=== PATIENT | female | born 1955 | race Caucasian/White ===

== ENCOUNTER 2017-02-03 21:39 | Observation (INO) | payer OTHER ==
[~2017-02-03] VITALS: Ht 170.2 cm; Wt 109.8 kg
[2017-02-03 22:41] LABS: BASO % 0.5 %; BASO ABS # 0.04 K/uL (0-0.2); COMPLETE YES; EOS % 2.1 %; HEMATOCRIT 47.9 % (37-47); IG% 0.1 %; LYMPH ABS # 3.01 K/uL (1.2-3.4); MEAN CELL VOLUME 88.7 fL (80-100); MEAN CORPUSCULAR HEMOGLOBIN 28.9 pg (25-34); MEAN CORPUSCULAR HGB CONC 32.6 g/dl (32-36); MEAN PLATELET VOLUME 10.1 fL (7.4-10.4); MONO % 7.2 %; NEUT % 50.1 %; PLATELET COUNT 240 K/uL (130-400); WHITE BLOOD COUNT 7.52 K/uL (4.8-10.8)
--- NOTE | 2017-02-03 22:43 | EMERGENCY ROOM VISIT NOTE ---
History Report prepared by Stephanie: Chikis Mcdnoough Under the Supervision of: Dr. Felipe Schmitt D.O. First contact with patient: 21:53 Chief Complaint: WEAKNESS Stated Complaint: SEEING THINGS, WEAK, VERY CONFUSED History of Present Illness The patient is a 61 year old female who presents to the Emergency Room with complaints of intermittent vision issues starting about a week ago. She states "things sometimes come toward me and move away from me." She has also been having a blurry vision, double vision, and loss of vision intermittently. As per family, the patient has been having some trouble with ambulation and has severe weakness. The patient reports that she has been dropping items. She currently reports improvement in her symptoms. She denies any pain. She denies chest pain, shortness of breath, or any other complaints. She denies any prior history of stroke. She has a history of heart palpitations and COPD. She does not wear oxygen at home. She did not have any recent changes in medications. She takes a baby aspirin daily but otherwise denies any other blood thinners. Source of History: patient, family Onset: about a week ago Position: eye (bilateral) Symptom Intensity: No pain Quality: other (vision issues) Timing: intermittent Associated Symptoms: No SOB, No chest pain Review of Systems See HPI for pertinent positives and negatives. A total of ten systems were reviewed and were otherwise negative. Past Medical & Surgical Medical Problems: (1) COPD (chronic obstructive pulmonary disease) (2) Heart palpitations (3) TIA (transient ischemic attack) Family History Patient reports no known family medical history. Social History Smoking Status: Never Smoker Marital Status: Occupation Status: unemployed Current/Historical Medications Scheduled Aspirin (Aspirin Ec), 81 MG PO DAILY Clonidine Hcl (Catapres), 0.2 MG PO HS Fluticasone Furoate-Vilanterol (Breo Ellipta), 1 PUFFS INH DAILY Fluticasone Propionate (Nasal) (Flonase Allergy Relief), 2 SPRAYS BRANDON DAILY Furosemide (Lasix), 20 MG PO Q2D Lisinopril (Zestril), 20 MG PO DAILY Lovastatin (Mevacor), 40 MG PO DAILY Metformin Hcl (Glucophage), 1,000 MG PO QAM Omeprazole (Prilosec), 20 MG PO DAILY Oxybutynin Chloride Er (Ditropan Xl), 10 MG PO DAILY Scheduled PRN Albuterol Hfa (Ventolin Hfa), 2 PUFFS INH Q6H PRN for SOB/Wheezing Ondasetron Odt (Zofran Odt), 4 MG SL Q8 PRN for Nausea or Vomiting Allergies Coded Allergies: Isosorbide Nitrate (Verified Adverse Reaction, Mild, 0, 02/04/17) headache Physical Exam Vital Signs Date Time Temp Pulse Resp B/P Pulse Ox O2 Delivery O2 Flow Rate FiO2 02/03/17 23:14 80 02/03/17 22:58 94 Room Air 02/03/17 22:58 84 20 145/104 94 Room Air 02/03/17 21:45 36.8 99 20 136/95 92 Room Air Physical Exam GENERAL: Awake, alert, well-appearing, in no distress HENT: Normocephalic, atraumatic. Oropharynx unremarkable. EYES: Normal conjunctiva. Sclera non-icteric. NECK: Supple. No nuchal rigidity. FROM. No JVD. RESPIRATORY: Clear to auscultation. CARDIAC: Regular rate, normal rhythm. Extremities warm and well perfused. Pulses equal. ABDOMEN: Soft, non-distended. No tenderness to palpation. No rebound or guarding. No masses. RECTAL: Deferred. MUSCULOSKELETAL: Chest examination reveals no tenderness. The back is symmetrical on inspection without obvious abnormality. There is no CVA tenderness to palpation. No joint edema. LOWER EXTREMITIES: Calves are equal size bilaterally and non-tender. No edema. No discoloration. NEURO: Normal sensorium. No sensory or motor deficits noted. NIH score of 0. SKIN: No rash or jaundice noted. Medical Decision & Procedures ER Provider Diagnostic Interpretation: CT: Radiology results as stated below per my review and radiologist interpretation CT SCAN OF THE BRAIN WITHOUT IV CONTRAST CLINICAL HISTORY: Visual changes. COMPARISON STUDY: No priors. TECHNIQUE: Unenhanced axial CT scan of the brain is performed from the vertex to the skull base. Automated dose control exposure was utilized. CT DOSE: 537.48 mGy.cm FINDINGS: Brain parenchyma: The brain parenchyma is normal in appearance. There is no hemorrhage, mass effect, or evidence of acute territorial ischemia by CT criteria. [place]-white matter is preserved. No extra-axial fluid collection is seen. Ventricles, sulci, cisterns: Normal in configuration. Intracranial vasculature: There is atherosclerotic calcification of the cavernous carotid arteries. Calvarium: Unremarkable. Sinuses and mastoids: The visualized paranasal sinuses are clear. The mastoid air cells are well pneumatized. Orbits: The bony orbits are grossly intact. IMPRESSION: There is no hemorrhage, mass effect, or evidence of acute territorial ischemia by CT criteria. Electronically signed by: Daljit Basilio M.D. 02/03/2017 10:49 PM Dictated Date/Time: 02/03/2017 10:47 PM Laboratory Results 02/03/17 22:25 Red Blood Count 5.40, Mean Corpuscular Volume 88.7, Mean Corpuscular Hemoglobin 28.9, Mean Corpuscular Hemoglobin Concent 32.6, Mean Platelet Volume 10.1, Neutrophils (%) (Auto) 50.1, Lymphocytes (%) (Auto) 40.0, Monocytes (%) (Auto) 7.2, Eosinophils (%) (Auto) 2.1, Basophils (%) (Auto) 0.5, Neutrophils # (Auto) 3.76, Lymphocytes # (Auto) 3.01, Monocytes # (Auto) 0.54, Eosinophils # (Auto) 0.16, Basophils # (Auto) 0.04 02/03/17 22:25 Test 02/03/17 22:25 02/03/17 22:50 02/04/17 00:27 White Blood Count 7.52 K/uL (4.8-10.8) Red Blood Count 5.40 M/uL (4.2-5.4) Hemoglobin 15.6 g/dL (12.0-16.0) Hematocrit 47.9 % (37-47) Mean Corpuscular Volume 88.7 fL (80-100) Mean Corpuscular Hemoglobin 28.9 pg (25-34) Mean Corpuscular Hemoglobin Concent 32.6 g/dl (32-36) Platelet Count 240 K/uL (130-400) Mean Platelet Volume 10.1 fL (7.4-10.4) Neutrophils (%) (Auto) 50.1 % Lymphocytes (%) (Auto) 40.0 % Monocytes (%) (Auto) 7.2 % Eosinophils (%) (Auto) 2.1 % Basophils (%) (Auto) 0.5 % Neutrophils # (Auto) 3.76 K/uL (1.4-6.5) Lymphocytes # (Auto) 3.01 K/uL (1.2-3.4) Monocytes # (Auto) 0.54 K/uL (0.11-0.59) Eosinophils # (Auto) 0.16 K/uL (0-0.5) Basophils # (Auto) 0.04 K/uL (0-0.2) RDW Standard Deviation 44.5 fL (36.4-46.3) RDW Coefficient of Variation 13.7 % (11.5-14.5) Immature Granulocyte % (Auto) 0.1 % Immature Granulocyte # (Auto) 0.01 K/uL (0.00-0.02) Prothrombin Time 10.5 SECONDS (9.0-12.0) Prothromb Time International Ratio 1.0 (0.9-1.1) Activated Partial Thromboplast Time 24.3 SECONDS (21.0-31.0) Partial Thromboplastin Ratio 0.9 Anion Gap 7.0 mmol/L (3-11) Est Creatinine Clear Calc Drug Dose 75.7 ml/min Estimated GFR () 70.4 Estimated GFR (Non- 60.8 BUN/Creatinine Ratio 21.8 (10-20) Calcium Level 9.4 mg/dl (8.5-10.1) Magnesium Level 2.4 mg/dl (1.8-2.4) Total Bilirubin 0.3 mg/dl (0.2-1) Direct Bilirubin 0.1 mg/dl (0-0.2) Aspartate Amino Transf (AST/SGOT) 17 U/L (15-37) Alanine Aminotransferase (ALT/SGPT) 34 U/L (12-78) Alkaline Phosphatase 89 U/L (45-117) Total Protein 7.3 gm/dl (6.4-8.2) Albumin 4.1 gm/dl (3.4-5.0) Thyroid Stimulating Hormone (TSH) 2.100 uIu/ml (0.300-4.500) Urine Color YELLOW Urine Appearance CLOUDY (CLEAR) Urine pH 5.0 (4.5-7.5) Urine Specific [place] 1.024 (1.000-1.030) Urine Protein NEG (NEG) Urine Glucose (UA) NEG (NEG) Urine Ketones NEG (NEG) Urine Occult Blood NEG (NEG) Urine Nitrite NEG (NEG) Urine Bilirubin NEG (NEG) Urine Urobilinogen NEG (NEG) Urine Leukocyte Esterase NEG (NEG) Urine WBC (Auto) 5-10 /hpf (0-5) Urine RBC (Auto) 0-4 /hpf (0-4) Urine Hyaline Casts (Auto) 1-5 /lpf (0-5) Urine Epithelial Cells (Auto) >30 /lpf (0-5) Urine Bacteria (Auto) NEG (NEG) Laboratory results reviewed by me ECG Indication: other (vision issues) Rate (beats per minute): 83 Rhythm: normal sinus Findings: no acute ischemic change, other (normal intervals) ED Course 2152: The patient was evaluated in room A11B. A complete history and physical exam was performed. 2350: Upon reexamination, the patient was resting comfortably. I discussed the test results and treatment plan with her. I discussed the patient's case with Dr. Galarza, from [facility]. The patient will be evaluated for further management. Medical Decision Differential diagnosis includes but is not limited to TIA, CVA, brain tumor, metabolic derangement, dehydration, electrolyte abnormalities. Repeat examination patient's resting in no distress at 12:30 AM. I discussed the workup with the patient patient's family at bedside. Initially she was seen by the hospitalist and she wanted to leave AGAINST MEDICAL ADVICE, patient will now stay in the hospital for further evaluation as I expect the patient is having TIAs. Patient has an NIH score of 0 at 12:30 AM Consults Time Called: [phone] Consulting Physician: Dr. Galarza, from [facility] Returned Call: [phone] I discussed the patient's case with Dr. Galazra, from [facility]. Impression Primary Impression: TIA (transient ischemic attack) Scribe Attestation The scribe's documentation has been prepared under my direction and personally reviewed by me in its entirety. I confirm that the note above accurately reflects all work, treatment, procedures, and medical decision making performed by me. Departure Information Dispostion Being Evaluated By Hospitalist Patient Instructions My [facility] Problem Qualifiers Primary Impression: TIA (transient ischemic attack) Transient cerebral ischemia type: unspecified Qualified Codes: G45.9 - Transient cerebral ischemic attack, unspecified
--- NOTE | 2017-02-03 22:50 | DIAGNOSTIC IMAGING REPORT ---
CT SCAN OF THE BRAIN WITHOUT IV CONTRAST CLINICAL HISTORY: Visual changes. COMPARISON STUDY: No priors. TECHNIQUE: Unenhanced axial CT scan of the brain is performed from the vertex to the skull base. Automated dose control exposure was utilized. CT DOSE: 537.48 mGy.cm FINDINGS: Brain parenchyma: The brain parenchyma is normal in appearance. There is no hemorrhage, mass effect, or evidence of acute territorial ischemia by CT criteria. Rico-white matter is preserved. No extra-axial fluid collection is seen. Ventricles, sulci, cisterns: Normal in configuration. Intracranial vasculature: There is atherosclerotic calcification of the cavernous carotid arteries. Calvarium: Unremarkable. Sinuses and mastoids: The visualized paranasal sinuses are clear. The mastoid air cells are well pneumatized. Orbits: The bony orbits are grossly intact. IMPRESSION: There is no hemorrhage, mass effect, or evidence of acute territorial ischemia by CT criteria. Electronically signed by: Daljit Basilio M.D. 02/03/2017 10:49 PM Dictated Date/Time: 02/03/2017 10:47 PM
[2017-02-03 22:51] LABS: PARTIAL THROMBOPLASTIN RATIO 0.9; PROTHROMBIN TIME (PATIENT) 10.5 SECONDS (9.0-12.0)
[2017-02-03 23:05] LABS: URINE APPEARANCE CLOUDY (CLEAR); URINE BILIRUBIN NEG (NEG); URINE COLOR YELLOW; URINE EPITHELIAL CELL AUTO >30 /lpf (0-5); URINE NITRITE NEG (NEG); URINE SPECIFIC GRAVITY 1.024 (1.000-1.030); UROBILINOGEN NEG (NEG)
[2017-02-03 23:06] LABS: MANUAL MICROSCOPIC REQUIRED? NO; REVIEW REQ? NO
[2017-02-03 23:17] LABS: ALKALINE PHOSPHATASE 89 U/L (45-117); ALT/SGPT 34 U/L (12-78); BLOOD UREA NITROGEN 22 mg/dl (7-18); BUN/CREATININE RATIO 21.8 (10-20); CARBON DIOXIDE 30 mmol/L (21-32); CHLORIDE 108 mmol/L (98-107); GLUCOSE 106 mg/dl (70-99)
[2017-02-03 23:22] LABS: CALCIUM 9.4 mg/dl (8.5-10.1); POTASSIUM 4.2 mmol/L (3.5-5.1)
[2017-02-03 23:26] LABS: AST/SGOT 17 U/L (15-37); MAGNESIUM 2.4 mg/dl (1.8-2.4)
[2017-02-03] MEDS ORDERED: FLUT1INH INH (23:48)
[2017-02-03] MEDS ORDERED: VNTHFA/IN INH (23:49)
[2017-02-03] MEDS ORDERED: CLON0.2T PO (23:50)
[2017-02-03] MEDS ORDERED: LOVA40TA4 PO (23:51)
[2017-02-03] MEDS ORDERED: LISI-725 PO (23:52)
[2017-02-03] MEDS ORDERED: OXYB10TA PO (23:54)
[2017-02-03] MEDS ORDERED: ASPI81TA28 PO (23:55)
[2017-02-03] MEDS ORDERED: FURO-85 PO (23:56)
[2017-02-03] MEDS ORDERED: ONDA4TAB10 SL (23:57)
[2017-02-03] MEDS ORDERED: PRLSR20 PO (23:58)
[2017-02-03] MEDS ORDERED: GLC/500 PO (23:59)
[2017-02-04] VITALS (7 sets, daily range): BP systolic 125–152; BP diastolic 84–97; PULSE 72–81; TEMP 36.2–37; O2SAT 91–95; Ht 170.2 cm; Wt 109.8 kg
[2017-02-04] MEDS ORDERED: FLUT0.15 NAE (00:01)
[2017-02-04] MEDS ORDERED: IV FLUIDS COMPLETED PRN (00:45)
[2017-02-04] MEDS ORDERED: CLOPIDOGREL BISULFATE 75 MG TAB PO STA (00:47)
[2017-02-04] MEDS ORDERED: GLUCOSE 40% GEL 15 GM TUBE PO PRN (01:00)
[2017-02-04] MEDS ORDERED: GLUCAGON FOR INJ 1 MG VIAL SQ PRN (01:00)
[2017-02-04] MEDS ORDERED: NITROGLYCERIN 0.4 MG SL PER TAB CHARGE SL PRN (01:00)
[2017-02-04] MEDS ORDERED: TRAMADOL HCL 50 MG TAB PO PRN (01:00)
[2017-02-04] MEDS ORDERED: DEXTROSE 50% 50 ML SYR IV PRN (01:00)
[2017-02-04] MEDS ORDERED: LORAZEPAM 2 MG/ML 1 ML VIAL IV PRN (01:00)
[2017-02-04] MEDS ORDERED: MoRPHine SULFATE 4 MG/ML 1 ML CARP\\VIAL IV PRN (01:00)
[2017-02-04] MEDS ORDERED: GLUCOSE 10 TABS/TUBE PO PRN (01:00)
[2017-02-04] MEDS ORDERED: ONDANSETRON INJ 2 MG/ML 2 ML VIAL IV PRN (01:00)
[2017-02-04] MEDS ORDERED: PHARMACIST DISCHARGE MED REC CONSULT PRN (01:00)
[2017-02-04 01:12] LABS: SODIUM 145 mmol/L (136-145)
[2017-02-04] MEDS ORDERED: LORAZEPAM 2 MG/ML 1 ML VIAL ONE (01:23)
[2017-02-04] MEDS ORDERED: SODIUM CHLORIDE 0.45% 1000ML 1,000 ML IV ONE (02:45)
--- NOTE | 2017-02-04 03:09 | HISTORY & PHYSICAL EXAMINATION ---
DATE OF ADMISSION: 02/04/2017 PRIMARY CARE PHYSICIAN: Ez Thorpe PA-C, [facility]. CHIEF COMPLAINT: Transient blurred vision and dropping things. HISTORY OF PRESENT ILLNESS: Hx obtained from px and records. Medical history significant for hypertension, DM2 on oral meds, hyperlipidemia, COPD, past tobacco abuse. Over the last few days, patient noted intermittent blurred vision in both eyes, occasional dropping things. No chest pain, usual shortness of breath, usual dry cough symptoms. No headache. compliant w home ASA Initially went to [facility] Emergency Room. Patient subsequently brought by family to [facility] ER for evaluation due to wait time at [facility]. Vision currently at baseline as per px. MEDICAL HISTORY: As above, compliant with home aspirin. SURGERIES: urologic procedures. HOME MEDICATIONS: Aspirin, metformin, oxybutynin, Breo Ellipta, Zofran, Omeprazole, Klonopin, lisinopril. ALLERGIES: IMDUR. FAMILY HISTORY: Heart disease, stroke. PERSONAL AND SOCIAL HISTORY: Past tobacco use. No chronic intake of alcohol. retired store employee. REVIEW OF SYSTEMS: As per HPI. All other ROS negative. PHYSICAL EXAMINATION: VITAL SIGNS: Blood pressure was noted to be 159/105, pulse rate 80, RR 20, temperature 36.8, sats 94 on room air. GENERAL: Noted to be anxious, tearful, obese. No respiratory distress. SKIN: Normal color. HEENT: Rayle palpebral conjunctivae. Dry mucosa. NECK: Short neck. LUNGS: Decreased breath sounds. HEART: Regular rate and rhythm. ABDOMEN: Soft. EXTREMITIES: min LE edema, no tenderness. NE : No gross focality. LABORATORY DATA: Hemoglobin was 15, hematocrit 47, white cell count 7.5, platelets are 240. Sodium 140, potassium 4.2, chloride 114, CO2 30, BUN 20, creatinine 1, glucose 196. Hemoglobin A1c from July 2016 was 6.4. Lipid profile: Cholesterol 120, triglycerides 250, LDL 90, HDL 72. IMAGING DATA: CT head initial read, no acute pathology. Chest x-ray as per my interpretation : atelectasis. EKG as per my interpretation : rate= 80, normal sinus. negative ischemia. ASSESSMENT: 1. Transient blurred vision symptoms, dropping things possible transient ischemic attack possible aspirin failure 2. hypertension, slightly elevated 3. hyperlipidemia on statin tx. 4. DM2 on oral meds, well controlled as of recent outpx HgA1c 5. Chronic obstructive pulmonary disease, past tobacco abuse. lung sx at baseline. PLAN: Observation PCU, neuro checks. Plavix for poss aspirin failure for now. continue statin tx MRI/MRA head Further workup/management pending MRI/MRA results. permissive HTN until stroke definitely ruled out ISS BG goal 140-180. Patient due for hemoglobin A1c recheck. DVT prophylaxis, Lovenox SQ Full code. MTDD
[2017-02-04] MEDS: ACETAMINOPHEN 325 MG TAB PO PRN ×3 (03:10→20:28)
--- NOTE | 2017-02-04 06:42 | DIAGNOSTIC IMAGING REPORT ---
MRI OF THE BRAIN WITHOUT CONTRAST CLINICAL HISTORY: Stroke, dizziness, blurry vision. COMPARISON STUDY: Head CT dated 02/03/2017 FINDINGS: Sagittal T1, axial diffusion, proton density and T2 weighted axial, coronal FLAIR, and axial T1-weighted images were acquired. No intra or extra-axial mass lesions are visualized Axial diffusion-weighted images reveal no evidence of acute or subacute infarction. There is no evidence of ventricular dilatation. Proton density T2-weighted and FLAIR images reveal scattered foci of increased T2 signal within the white matter, likely on a small vessel basis. There are no abnormal flow voids. IMPRESSION: 1. No acute intracranial findings 2. No evidence of acute or subacute infarction 3. No evidence of intracranial mass on this noncontrast study. Electronically signed by: David Robledo M.D. 02/04/2017 6:41 AM Dictated Date/Time: 02/04/2017 6:40 AM
[2017-02-04 06:47] LABS: ESTIMATED AVERAGE GLUCOSE 148 mg/dl; HA1C FLAG Normal (Normal)
[2017-02-04 07:26] LABS: BASO % 0.6 %; BASO ABS # 0.04 K/uL (0-0.2); COMPLETE YES; EOS % 2.7 %; HEMATOCRIT 44.6 % (37-47); IG% 0.2 %; LYMPH % 41.7 %; LYMPH ABS # 2.64 K/uL (1.2-3.4); MEAN CELL VOLUME 88.8 fL (80-100); MEAN CORPUSCULAR HEMOGLOBIN 29.7 pg (25-34); MEAN CORPUSCULAR HGB CONC 33.4 g/dl (32-36); MEAN PLATELET VOLUME 10.6 fL (7.4-10.4); MONO % 7.9 %; NEUT % 46.9 %; PLATELET COUNT 200 K/uL (130-400); RED BLOOD COUNT 5.02 M/uL (4.2-5.4); WHITE BLOOD COUNT 6.33 K/uL (4.8-10.8)
--- NOTE | 2017-02-04 07:35 | DIAGNOSTIC IMAGING REPORT ---
CHEST ONE VIEW PORTABLE HISTORY: Short of breath. COMPARISON: None. FINDINGS: Left basilar linear densities suggesting subsegmental atelectasis. The lungs are otherwise clear. The heart is top normal in size. No pleural effusions. No pneumothorax. IMPRESSION: Left basilar linear densities suggesting subsegmental atelectasis. Otherwise, no acute process within the chest. Electronically signed by: Jesus Virk M.D. 02/04/2017 7:34 AM Dictated Date/Time: 02/04/2017 7:33 AM
[2017-02-04] MEDS: LOVASTATIN 20 MG TAB PO SCH (08:40)
[2017-02-04] MEDS: PANTOprazole SOD 40 MG TAB PO SCH (08:40)
[2017-02-04] MEDS: OXYBUTYNIN CHLORIDE 5 MG TABCR PO SCH (08:40)
[2017-02-04] MEDS: FLUTICASONE PROPIONATE NA SPR 16 GM BTL NAE SCH (08:41)
[2017-02-04] MEDS: ENOXAPARIN 40 MG/0.4 ML SYR SC SCH (08:41)
[2017-02-04] MEDS: INSULIN ASPART 100 UNITS/ML 3 ML PEN SC SCH ×4 (08:42→20:26)
--- NOTE | 2017-02-04 11:21 | DIAGNOSTIC IMAGING REPORT ---
Brain MRA HISTORY: Stroke - Attention to [place] TECHNIQUE: 3-D [id number] MRA of the brain was performed without contrast. COMPARISON STUDY: None. FINDINGS: Motion artifact resulting in suboptimal evaluation. However, there is no definite stenosis, occlusion, or aneurysm identified within the bilateral ACAs, MCAs, or clay miner. The intracranial internal carotid arteries appear patent. The basilar artery is patent. Hypoplastic distal left vertebral artery. However, the distal vertebral arteries are likely patent. IMPRESSION: Motion artifact. No definite stenosis, occlusion, or aneurysm within the [place]. Electronically signed by: Jesus Virk M.D. 02/04/2017 11:19 AM Dictated Date/Time: 02/04/2017 7:05 AM
--- NOTE | 2017-02-04 14:59 | Neurology Consultation ---
Neurology Consultation Date of Consultation: February 04, 2017. Attending Physician: Estela Callahan M.D. Primary Care Physician: Ez Thorpe PA-C Reason for Consultation: TIA/ stroke History of Present Illness Source: patient, family, spouse Nichole is a 61 year old female PMH DM, DL, HTN, migraines, who on Wednesday of this week had intermittent blurred vision in both eyes, occasional dropping things, and having an episode of forgetfulness with some slurred speech. She had a headache just prior to symptoms which lasted about 2 hours before resolving. She does not remember the episode but her daughter who is in the room gives the detail. She had been working out in the yard and thought she was just overheated. She then had a 2nd episode which her daughter was with her again very similar with a headache, blurred vision, loss of time and confusion and dizziness which lasted about 5 hours. she was initially taken to [facility] but the wait was so long that her daughter decided to bring her to [facility]. She does have a history of migraines which she states she has not had in years but the headache and blurred vision was similar. She is unsure if she had eaten that morning. denies CP, SOB, abdominal pain, one sided numbness tingling , weakness, N, V, biting her tongue or LOC, incontinence. No history of TIA, stroke or seizure. strong family history of vascular disease, DM. denies EtoH, smoking, other drug use, head trauma Past Medical/Surgical History Medical Problems: (1) TIA (transient ischemic attack) Status: Acute Social History Smoking Status: Former smoker Marital Status: Housing Status: lives with family Occupation Status: unemployed Allergies Coded Allergies: Isosorbide Nitrate (Verified Adverse Reaction, Mild, 0, 02/04/17) headache Current Inpatient Medications Current Inpatient Medications Medications (Trade) Dose Ordered Sig/Cherelle Route Start Time Stop Time Status Last Admin Dose Admin Clopidogrel Bisulfate (plAVix TAB) 75 mg QAM PO 02/05/17 09:00 03/07/17 08:59 Miscellaneous (Iv Fluids Completed) 1 ea PRN PRN N/A 02/04/17 00:45 02/04/18 00:44 Enoxaparin Sodium 40 mg 40 mg Q24H SC 02/04/17 09:00 03/06/17 08:59 02/04/17 08:41 40 MG Sodium Chloride (1/2 Nss 1000ml) 1,000 ml @ 75 mls/hr [id number] ONCE IV 02/04/17 02:45 02/04/17 16:04 02/04/17 03:09 75 MLS/HR Acetaminophen (Tylenol Tab) 650 mg Q4H PRN PO 02/04/17 01:00 03/06/17 00:59 02/04/17 12:09 650 MG Nitroglycerin (Nitrostat Tab) 0.4 mg UD PRN SL 02/04/17 01:00 03/06/17 00:59 Insulin Aspart (novoLOG ASPART) SLIDING SCALE If C... ACHS SC 02/04/17 06:30 03/06/17 06:59 Glucose (Glucose 40% Gel) 15-30 GRAMS 15 GRAMS... UD PRN PO 02/04/17 01:00 03/06/17 00:59 Glucose (Glucose Chew Tab) 4-8 Tablets 4 Tabl... UD PRN PO 02/04/17 01:00 03/06/17 00:59 Dextrose (Dextrose 50% 50ML Syringe) 25-50ML OF 50% DW IV FOR... UD PRN IV 02/04/17 01:00 03/06/17 00:59 Glucagon (Glucagon Inj) 1 mg UD PRN SQ 02/04/17 01:00 03/06/17 00:59 Miscellaneous Information (Pharmacist Discharge Med Rec Consult) 1 ea UD PRN N/A 02/04/17 01:00 03/06/17 00:59 Lorazepam (Ativan Inj) 0.5 mg Q4H PRN IV 02/04/17 01:00 03/06/17 00:59 Tramadol HCl (Ultram Tab) 25 mg Q6H PRN PO 02/04/17 01:00 03/06/17 00:59 Ondansetron HCl (Zofran Inj) 4 mg Q6H PRN IV 02/04/17 01:00 03/06/17 00:59 Morphine Sulfate (MoRPHine SULFATE INJ) 4 mg Q3H PRN IV 02/04/17 01:00 02/18/17 00:59 Fluticasone Propionate (Flonase Nasal [place]) 2 sprays DAILY BRANDON 02/04/17 09:00 03/06/17 08:59 Oxybutynin Chloride (Ditropan-Xl Tab) 10 mg DAILY PO 02/04/17 09:00 03/06/17 08:59 02/04/17 08:40 10 MG Lovastatin (Mevacor Tab) 40 mg DAILY PO 02/04/17 09:00 03/06/17 08:59 02/04/17 08:40 40 MG Pantoprazole Sodium (Protonix Tab) 40 mg DAILY PO 02/04/17 09:00 03/06/17 08:59 02/04/17 08:40 40 MG Physical Exam Vital Signs (Past 24 Hrs): Date Time Temp Pulse Resp B/P Pulse Ox O2 Delivery O2 Flow Rate FiO2 02/04/17 12:00 Room Air 02/04/17 11:26 36.8 72 18 137/87 95 Room Air 02/04/17 08:07 93 Room Air 02/04/17 07:01 36.8 81 20 129/91 93 Room Air 02/04/17 02:57 36.2 80 18 143/94 94 Room Air 02/04/17 00:45 83 20 159/105 94 Room Air 02/04/17 00:30 96 19 95 Room Air 02/04/17 00:00 77 20 93 Room Air 02/03/17 23:30 87 29 94 Room Air 02/03/17 23:14 80 02/03/17 22:58 94 Room Air 02/03/17 22:58 84 20 145/104 94 Room Air 02/03/17 21:45 36.8 99 20 136/95 92 Room Air Physical Exam: Constitutional: appearance nourished, healthy and obese Ears, Nose, Mouth and Throat: mucous membranes moist, no injection and skin normal, eyes normal Cardiovascular: normal S-1 and S-2 and regular rate and rhythm Respiratory: clear to auscultation (CTA) and no rales, rhonchi or wheeze Musculoskeletal: no peripheral edema and good distal pulses Skin: no stigmata of neurocutaneous disease noted and normal and intact Eyes: extraocular muscles intact (EOMI) and pupils equal, round and reactive to light (PERRL), good vascular pulsations, disc flat NEUROLOGIC EXAMINATION: Mental status: Alert and interactive Oriented to full date and location Oriented to person Speech fluent with no evidence of aphasia Cranial Nerves smile eye brow raise symmetric, tongue Reflexes: Deep tendon reflexes were symmetrical and graded 2/5. Plantar responses were flexor. Sensory: vibration, GT proprioception intact Coordination: Romberg absent Gait/Stance: Posture normal. Gait normal: with steady with steps, base, turning, tandem gait. Motor: Negative for pronator drift of out stretched arms with eyes closed. Strength: hand loading dock hand biceps triceps deltoids 5/5 bilaterally, hip flex plantar flex ext 5/ 5 bilaterally Laboratory Results Past 24 Hours: 02/04/17 06:43 Red Blood Count 5.02, Mean Corpuscular Volume 88.8, Mean Corpuscular Hemoglobin 29.7, Mean Corpuscular Hemoglobin Concent 33.4, Mean Platelet Volume 10.6, Neutrophils (%) (Auto) 46.9, Lymphocytes (%) (Auto) 41.7, Monocytes (%) (Auto) 7.9, Eosinophils (%) (Auto) 2.7, Basophils (%) (Auto) 0.6, Neutrophils # (Auto) 2.97, Lymphocytes # (Auto) 2.64, Monocytes # (Auto) 0.50, Eosinophils # (Auto) 0.17, Basophils # (Auto) 0.04 02/03/17 22:25 Test 02/03/17 22:25 02/03/17 22:50 02/04/17 06:43 02/04/17 11:47 Prothrombin Time 10.5 SECONDS (9.0-12.0) Prothromb Time International Ratio 1.0 (0.9-1.1) Activated Partial Thromboplast Time 24.3 SECONDS (21.0-31.0) Partial Thromboplastin Ratio 0.9 Anion Gap 7.0 mmol/L (3-11) Est Creatinine Clear Calc Drug Dose 75.7 ml/min Estimated GFR () 70.4 Estimated GFR (Non- 60.8 BUN/Creatinine Ratio 21.8 (10-20) Estimated Average Glucose 148 mg/dl Hemoglobin A1c 6.8 % (4.5-5.6) Calcium Level 9.4 mg/dl (8.5-10.1) Magnesium Level 2.4 mg/dl (1.8-2.4) Total Bilirubin 0.3 mg/dl (0.2-1) Direct Bilirubin 0.1 mg/dl (0-0.2) Aspartate Amino Transf (AST/SGOT) 17 U/L (15-37) Alanine Aminotransferase (ALT/SGPT) 34 U/L (12-78) Alkaline Phosphatase 89 U/L (45-117) Troponin I < 0.015 ng/ml (0-0.045) Total Protein 7.3 gm/dl (6.4-8.2) Albumin 4.1 gm/dl (3.4-5.0) Thyroid Stimulating Hormone (TSH) 2.100 uIu/ml (0.300-4.500) Urine Color YELLOW Urine Appearance CLOUDY (CLEAR) Urine pH 5.0 (4.5-7.5) Urine Specific [place] 1.024 (1.000-1.030) Urine Protein NEG (NEG) Urine Glucose (UA) NEG (NEG) Urine Ketones NEG (NEG) Urine Occult Blood NEG (NEG) Urine Nitrite NEG (NEG) Urine Bilirubin NEG (NEG) Urine Urobilinogen NEG (NEG) Urine Leukocyte Esterase NEG (NEG) Urine WBC (Auto) 5-10 /hpf (0-5) Urine RBC (Auto) 0-4 /hpf (0-4) Urine Hyaline Casts (Auto) 1-5 /lpf (0-5) Urine Epithelial Cells (Auto) >30 /lpf (0-5) Urine Bacteria (Auto) NEG (NEG) White Blood Count 6.33 K/uL (4.8-10.8) Red Blood Count 5.02 M/uL (4.2-5.4) Hemoglobin 14.9 g/dL (12.0-16.0) Hematocrit 44.6 % (37-47) Mean Corpuscular Volume 88.8 fL (80-100) Mean Corpuscular Hemoglobin 29.7 pg (25-34) Mean Corpuscular Hemoglobin Concent 33.4 g/dl (32-36) Platelet Count 200 K/uL (130-400) Mean Platelet Volume 10.6 fL (7.4-10.4) Neutrophils (%) (Auto) 46.9 % Lymphocytes (%) (Auto) 41.7 % Monocytes (%) (Auto) 7.9 % Eosinophils (%) (Auto) 2.7 % Basophils (%) (Auto) 0.6 % Neutrophils # (Auto) 2.97 K/uL (1.4-6.5) Lymphocytes # (Auto) 2.64 K/uL (1.2-3.4) Monocytes # (Auto) 0.50 K/uL (0.11-0.59) Eosinophils # (Auto) 0.17 K/uL (0-0.5) Basophils # (Auto) 0.04 K/uL (0-0.2) RDW Standard Deviation 45.4 fL (36.4-46.3) RDW Coefficient of Variation 13.8 % (11.5-14.5) Immature Granulocyte % (Auto) 0.2 % Immature Granulocyte # (Auto) 0.01 K/uL (0.00-0.02) Bedside Glucose 93 mg/dl (70-90) Imaging MRI with and without contrast- No acute intracranial findings No evidence of acute or subacute infarction No evidence of intracranial mass on this noncontrast study. MRA brain -Motion artifact. No definite stenosis, occlusion, or aneurysm within the [place]. Impression 61 year old with confusion, slurred speech, headache, blurred vision Plan 1. MRI/MRA - no evidence of stroke 2. carotid doppler- for and vascular issues causing symptoms 3. Plavix 75 mg daily started already on aspirin 81 mg will continue for 3 months 4. permissive hypertension 5. PT/OT for discharge needs 6. optimize DM, HTN, cholestrol control 7. refer to ophthalmology as out patient for evaluation of blurred vision 8. MRA neck for new onset dizziness 9. loss of time will order EEG I have seen and discussed above patient with Dr Lori Antonio, neurology PT seen and examined, 2 episodes of difficult to localize neurol sx, the second of which occurred after 4 hours of heat exposure. Exam is notable for the absence of neurologic findings. Possible TIA, less likely confusional migraine, seizure. Rec antiplt tx as above, MRA neck (unclear localization of episode) EEG. Will follow with you NAHID Antonio MD
--- NOTE | 2017-02-04 15:44 | Progress Note ---
Internal Med Progress Note Date of Service: February 04, 2017. Provider Documentation: SUBJECTIVE: The patient was seen and examined Admitted with TIA like symptoms ::noted intermittent blurred vision in both eyes ,occasional dropping things. Seems resolving Denies any symptoms this morning OBJECTIVE: Vital Signs-as noted below Exam: General-No distress at rest Eyes-normal ENT-normal Neck-supple Lungs-Clear to auscultate bilaterally Heart-Regular,no murmur Abdomen-Benign,no masses,bowel sound present Extremities-No edema Neuro-AAOx3 No focal neuro deficit Lab data as noted below. ASSESSMENT & PLAN: TIA Admitted with Transient blurred vision symptoms, dropping things Imaging:: MRI with and without contrast- No acute intracranial findings No evidence of acute or subacute infarction No evidence of intracranial mass on this noncontrast study. MRA brain -Motion artifact. No definite stenosis, occlusion, or aneurysm within the [place]. CT of the Head-negative Plavix added on to of Aspirin Appreciate Neurology input PT/OT evaluation Hypertension, slightly elevated on admission Remains stable Hyperlipidemia on statin tx. DM2 on oral meds, well controlled as of recent outpx HgA1cm 5. ISS BG goal 140-180. Patient due for hemoglobin A1c recheck. Chronic obstructive pulmonary disease, past tobacco abuse. No acute symptoms. DVT prophylaxis, Lovenox SQ Full code. PT/OT evaluation Likely discharge tomorrow Vital Signs: Date Time Temp Pulse Resp B/P Pulse Ox O2 Delivery O2 Flow Rate FiO2 02/04/17 15:28 37.0 72 18 152/97 91 Room Air 02/04/17 12:00 Room Air 02/04/17 11:26 36.8 72 18 137/87 95 Room Air 02/04/17 08:07 93 Room Air 02/04/17 07:01 36.8 81 20 129/91 93 Room Air 02/04/17 02:57 36.2 80 18 143/94 94 Room Air 02/04/17 00:45 83 20 159/105 94 Room Air 02/04/17 00:30 96 19 95 Room Air 02/04/17 00:00 77 20 93 Room Air 02/03/17 23:30 87 29 94 Room Air 02/03/17 23:14 80 02/03/17 22:58 94 Room Air 02/03/17 22:58 84 20 145/104 94 Room Air 02/03/17 21:45 36.8 99 20 136/95 92 Room Air Lab Results: Results Past 24 Hours Test 02/03/17 22:25 02/03/17 22:50 02/04/17 06:43 02/04/17 07:16 Range/Units White Blood Count 7.52 6.33 4.8-10.8 K/uL Red Blood Count 5.40 5.02 4.2-5.4 M/uL Hemoglobin 15.6 14.9 12.0-16.0 g/dL Hematocrit 47.9 44.6 37-47 % Mean Corpuscular Volume 88.7 88.8 80-100 fL Mean Corpuscular Hemoglobin 28.9 29.7 25-34 pg Mean Corpuscular Hemoglobin Concent 32.6 33.4 32-36 g/dl Platelet Count 240 200 130-400 K/uL Mean Platelet Volume 10.1 10.6 7.4-10.4 fL Neutrophils (%) (Auto) 50.1 46.9 % Lymphocytes (%) (Auto) 40.0 41.7 % Monocytes (%) (Auto) 7.2 7.9 % Eosinophils (%) (Auto) 2.1 2.7 % Basophils (%) (Auto) 0.5 0.6 % Neutrophils # (Auto) 3.76 2.97 1.4-6.5 K/uL Lymphocytes # (Auto) 3.01 2.64 1.2-3.4 K/uL Monocytes # (Auto) 0.54 0.50 0.11-0.59 K/uL Eosinophils # (Auto) 0.16 0.17 0-0.5 K/uL Basophils # (Auto) 0.04 0.04 0-0.2 K/uL RDW Standard Deviation 44.5 45.4 36.4-46.3 fL RDW Coefficient of Variation 13.7 13.8 11.5-14.5 % Immature Granulocyte % (Auto) 0.1 0.2 % Immature Granulocyte # (Auto) 0.01 0.01 0.00-0.02 K/uL Prothrombin Time 10.5 9.0-12.0 SECONDS Prothromb Time International Ratio 1.0 0.9-1.1 Activated Partial Thromboplast Time 24.3 21.0-31.0 SECONDS Partial Thromboplastin Ratio 0.9 Sodium Level 145 136-145 mmol/L Potassium Level 4.2 3.5-5.1 mmol/L Chloride Level 108 98-107 mmol/L Carbon Dioxide Level 30 21-32 mmol/L Anion Gap 7.0 3-11 mmol/L Blood Urea Nitrogen 22 7-18 mg/dl Creatinine 1.00 0.60-1.20 mg/dl Est Creatinine Clear Calc Drug Dose 75.7 ml/min Estimated GFR () 70.4 Estimated GFR (Non- 60.8 BUN/Creatinine Ratio 21.8 10-20 Random Glucose 106 70-99 mg/dl Estimated Average Glucose 148 mg/dl Hemoglobin A1c 6.8 4.5-5.6 % Calcium Level 9.4 8.5-10.1 mg/dl Magnesium Level 2.4 1.8-2.4 mg/dl Total Bilirubin 0.3 0.2-1 mg/dl Direct Bilirubin 0.1 0-0.2 mg/dl Aspartate Amino Transf (AST/SGOT) 17 15-37 U/L Alanine Aminotransferase (ALT/SGPT) 34 12-78 U/L Alkaline Phosphatase 89 45-117 U/L Troponin I < 0.015 0-0.045 ng/ml Total Protein 7.3 6.4-8.2 gm/dl Albumin 4.1 3.4-5.0 gm/dl Thyroid Stimulating Hormone (TSH) 2.100 0.300-4.500 uIu/ml Urine Color YELLOW Urine Appearance CLOUDY CLEAR Urine pH 5.0 4.5-7.5 Urine Specific [place] 1.024 1.000-1.030 Urine Protein NEG NEG Urine Glucose (UA) NEG NEG Urine Ketones NEG NEG Urine Occult Blood NEG NEG Urine Nitrite NEG NEG Urine Bilirubin NEG NEG Urine Urobilinogen NEG NEG Urine Leukocyte Esterase NEG NEG Urine WBC (Auto) 5-10 0-5 /hpf Urine RBC (Auto) 0-4 0-4 /hpf Urine Hyaline Casts (Auto) 1-5 0-5 /lpf Urine Epithelial Cells (Auto) >30 0-5 /lpf Urine Bacteria (Auto) NEG NEG Bedside Glucose 113 70-90 mg/dl Test 02/04/17 11:47 Range/Units Bedside Glucose 93 70-90 mg/dl Microbiology Results 02/03/17 Urine Culture, Received Pending
--- NOTE | 2017-02-04 16:05 | DIAGNOSTIC IMAGING REPORT ---
ULTRASOUND OF THE CAROTID ARTERIES CLINICAL HISTORY: Change in mental status. Vision changes. COMPARISON STUDY: No priors. TECHNIQUE: Real-time, grayscale, and color Doppler sonography of the carotid arteries is performed. Images are reviewed in the transverse and longitudinal planes. FINDINGS: Blood pressures were not assessed due to limb restrictions. The carotid arteries are patent bilaterally and demonstrate antegrade flow. There is no significant atherosclerotic plaque seen. Normal doppler arterial waveforms are seen throughout. Velocity measurements are listed below. Common carotid peak systolic velocity (cm/sec): RIGHT: 57 LEFT: 75 ICA proximal peak systolic velocity (cm/sec): RIGHT: 37 LEFT: 66 ICA mid peak systolic velocity (cm/sec): RIGHT: 31 LEFT: 72 ICA distal peak systolic velocity (cm/sec): RIGHT: 82 LEFT: 72 ICA/CC peak systolic ratio: RIGHT: 1.4 LEFT: 1.0 Antegrade flow was shown in the vertebral arteries. The external carotid arteries are patent. IMPRESSION: 1. There is no sonographic evidence of hemodynamically significant stenosis in the right or left carotid arterial system. 2. Antegrade flow is shown in the vertebral arteries. Electronically signed by: Daljit Basilio M.D. 02/04/2017 4:03 PM Dictated Date/Time: 02/04/2017 3:59 PM
[2017-02-04] MEDS ORDERED: LORAZEPAM INJ 0.5 MG in SYRINGE 0.75 ML IV PRN (21:00)
--- NOTE | 2017-02-04 21:47 | DIAGNOSTIC IMAGING REPORT ---
NECK MRA HISTORY: Mental status change confusion dizziness TECHNIQUE: [id number] and gadolinium-enhanced MRA of the neck was performed both before and after the intravenous administration of contrast. All measurements were calculated based on NASCET criteria. COMPARISON STUDY: None FINDINGS: The aortic arch and proximal great vessels are widely patent. There is no significant stenosis, occlusion, or dissection identified within the bilateral common carotid, internal carotid, or vertebral arteries. 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 Otherwise negative study Electronically signed by: Jordan Heller M.D. 02/04/2017 9:46 PM Dictated Date/Time: 02/04/2017 9:44 PM
[2017-02-05 04:11] VITALS: BP 143/92; PULSE 68; TEMP 36.7; O2SAT 93
[2017-02-05] MEDS: INSULIN ASPART 100 UNITS/ML 3 ML PEN SC SCH ×2 (06:30→11:00)
[2017-02-05] MEDS: ACETAMINOPHEN 325 MG TAB PO PRN ×2 (06:33→13:44)
[2017-02-05 06:34] LABS: BUN/CREATININE RATIO 19.2 (10-20); CALCIUM 8.7 mg/dl (8.5-10.1); MAGNESIUM 2.4 mg/dl (1.8-2.4); POTASSIUM 3.8 mmol/L (3.5-5.1)
[2017-02-05] MEDS: OXYBUTYNIN CHLORIDE 5 MG TABCR PO SCH (07:46)
[2017-02-05] MEDS: LOVASTATIN 20 MG TAB PO SCH (07:46)
[2017-02-05] MEDS: ENOXAPARIN 40 MG/0.4 ML SYR SC SCH (07:46)
[2017-02-05] MEDS: PANTOprazole SOD 40 MG TAB PO SCH (07:47)
[2017-02-05] MEDS: FLUTICASONE PROPIONATE NA SPR 16 GM BTL NAE SCH (07:47)
[2017-02-05 07:58] VITALS: BP 146/94; PULSE 68; TEMP 36.9; O2SAT 96
[2017-02-05] MEDS ORDERED: CLOPIDOGREL BISULFATE 75 MG TAB PO SCH (09:00)
[2017-02-05] MEDS ORDERED: ASPIRIN 81 MG ECTAB PO SCH (09:00)
--- NOTE | 2017-02-05 11:43 | Neurology Progress Notes ---
Neurology Progress Note Date of Service February 05, 2017. Subjective Nichole is a 61 year old female PMH DM, DL, HTN, migraines, who on Wednesday of this week had intermittent blurred vision in both eyes, occasional dropping things, and having an episode of forgetfulness with some slurred speech. She had a headache just prior to symptoms which lasted about 2 hours before resolving. She does not remember the episode but her daughter who is in the room gives the detail. She had been working out in the yard and thought she was just overheated. She then had a 2nd episode which her daughter was with her again very similar with a headache, blurred vision, loss of time and confusion and dizziness which lasted about 5 hours. she was initially taken to [facility] but the wait was so long that her daughter decided to bring her to [facility]. She does have a history of migraines which she states she has not had in years but the headache and blurred vision was similar. She is unsure if she had eaten that morning. denies CP, SOB, abdominal pain, one sided numbness tingling , weakness, N, V, biting her tongue or LOC, incontinence. No history of TIA, stroke or seizure. strong family history of vascular disease, DM. denies EtoH, smoking (quit 5 years ago), other drug use, head trauma Today she states she is feeling good and ready to go home. imaging discussed, EEG pending. denies CP, SOB, abdominal pain, weakness, numbness tingling, N, V. no further episodes since hospitalized. Objective Date Time Temp Pulse Resp B/P Pulse Ox O2 Delivery O2 Flow Rate FiO2 02/05/17 08:04 Room Air 02/05/17 07:58 36.9 68 18 146/94 96 Room Air 02/05/17 04:11 36.7 68 18 143/92 93 Room Air 02/05/17 04:05 Room Air 02/05/17 00:05 Room Air 02/04/17 23:10 36.7 77 18 125/84 92 Room Air 02/04/17 20:00 Room Air 02/04/17 19:08 36.9 73 16 149/90 92 Room Air 02/04/17 16:30 Room Air 02/04/17 15:28 37.0 72 18 152/97 91 Room Air 02/04/17 12:00 Room Air Last 24 Hours Test 02/04/17 11:47 02/04/17 16:20 02/04/17 20:27 02/05/17 05:42 Bedside Glucose 93 mg/dl 98 mg/dl 101 mg/dl Sodium Level 144 mmol/L Potassium Level 3.8 mmol/L Chloride Level 108 mmol/L Carbon Dioxide Level 32 mmol/L Anion Gap 4.0 mmol/L Blood Urea Nitrogen 19 mg/dl Creatinine 1.00 mg/dl Est Creatinine Clear Calc Drug Dose 75.4 ml/min Estimated GFR () 70.4 Estimated GFR (Non- 60.8 BUN/Creatinine Ratio 19.2 Random Glucose 109 mg/dl Calcium Level 8.7 mg/dl Magnesium Level 2.4 mg/dl Test 02/05/17 07:24 Bedside Glucose 122 mg/dl Imaging: MRA neck -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 Otherwise negative study Exam: Physical Exam: Constitutional: appearance nourished, healthy and obese Ears, Nose, Mouth and Throat: mucous membranes moist, no injection and skin normal, eyes normal Cardiovascular: normal S-1 and S-2 and regular rate and rhythm Respiratory: clear to auscultation (CTA) and no rales, rhonchi or wheeze Musculoskeletal: no peripheral edema and good distal pulses Skin: no stigmata of neurocutaneous disease noted and normal and intact Eyes: extraocular muscles intact (EOMI) and pupils equal, round and reactive to light (PERRL) NEUROLOGIC EXAMINATION: Mental status: Alert and interactive Oriented to full date and location Oriented to person Speech fluent with no evidence of aphasia Cranial Nerves smile eye brow raise symmetric, tongue midline Coordination: finger to nose without bi pass Gait/Stance: Posture lying in bed sits up bedside with no difficulty Motor: Negative for pronator drift of out stretched arms with eyes closed. Strength: biceps triceps deltoids hand credit counselor bilaterally 5/5, hip flex plantar flex ext 5/ 5 bilaterally Current Inpatient Medications Medications (Trade) Dose Ordered Sig/Cherelle Route Start Time Stop Time Status Last Admin Dose Admin Clopidogrel Bisulfate (plAVix TAB) 75 mg QAM PO 02/05/17 09:00 03/07/17 08:59 02/05/17 07:46 75 MG Miscellaneous (Iv Fluids Completed) 1 ea PRN PRN N/A 02/04/17 00:45 02/04/18 00:44 Enoxaparin Sodium (Lovenox Inj) 40 mg Q24H SC 02/04/17 09:00 03/06/17 08:59 02/05/17 07:46 40 MG Acetaminophen (Tylenol Tab) 650 mg Q4H PRN PO 02/04/17 01:00 03/06/17 00:59 02/05/17 06:33 650 MG Nitroglycerin (Nitrostat Tab) 0.4 mg UD PRN SL 02/04/17 01:00 03/06/17 00:59 Insulin Aspart (novoLOG ASPART) SLIDING SCALE If C... ACHS SC 02/04/17 06:30 03/06/17 06:59 Glucose (Glucose 40% Gel) 15-30 GRAMS 15 GRAMS... UD PRN PO 02/04/17 01:00 03/06/17 00:59 Glucose (Glucose Chew Tab) 4-8 Tablets 4 Tabl... UD PRN PO 02/04/17 01:00 03/06/17 00:59 Dextrose (Dextrose 50% 50ML Syringe) 25-50ML OF 50% DW IV FOR... UD PRN IV 02/04/17 01:00 03/06/17 00:59 Glucagon (Glucagon Inj) 1 mg UD PRN SQ 02/04/17 01:00 03/06/17 00:59 Miscellaneous Information (Pharmacist Discharge Med Rec Consult) 1 ea UD PRN N/A 02/04/17 01:00 03/06/17 00:59 Lorazepam (Ativan Inj) 0.5 mg Q4H PRN IV 02/04/17 01:00 03/06/17 00:59 02/04/17 21:04 0.5 MG Tramadol HCl (Ultram Tab) 25 mg Q6H PRN PO 02/04/17 01:00 03/06/17 00:59 Ondansetron HCl (Zofran Inj) 4 mg Q6H PRN IV 02/04/17 01:00 03/06/17 00:59 Morphine Sulfate (MoRPHine SULFATE INJ) 4 mg Q3H PRN IV 02/04/17 01:00 02/18/17 00:59 Fluticasone Propionate (Flonase Nasal [place]) 2 sprays DAILY BRANDON 02/04/17 09:00 03/06/17 08:59 02/05/17 07:47 2 SPRAYS Oxybutynin Chloride (Ditropan-Xl Tab) 10 mg DAILY PO 02/04/17 09:00 03/06/17 08:59 02/05/17 07:46 10 MG Lovastatin (Mevacor Tab) 40 mg DAILY PO 02/04/17 09:00 03/06/17 08:59 02/05/17 07:46 40 MG Pantoprazole Sodium (Protonix Tab) 40 mg DAILY PO 02/04/17 09:00 03/06/17 08:59 02/05/17 07:47 40 MG Aspirin 81 mg 81 mg QAM PO 02/05/17 09:00 03/07/17 08:59 02/05/17 07:46 81 MG Lorazepam/Syringe (Ativan Inj/ Syringe) 1 ml @ 1 mls/min Q4H PRN IV 02/04/17 21:00 03/06/17 20:59 Impression 61 year old with confusion, slurred speech, headache, blurred vision- resolved Plan 1. MRI/MRA - no evidence of stroke 2. carotid doppler- no significant stenosis 3. Plavix 75 mg daily started already on aspirin 81 mg will continue for 3 months 4. will see back in our office in 3-4 weeks Lori Morrow PAC schedule 5. PT/OT for discharge needs 6. optimize DM, HTN, cholesterol control 7. refer to ophthalmology as out patient for evaluation of blurred vision 8. MRA neck for new onset dizziness - no acute findings 9. loss of time will order EEG- pending read I have seen and discussed above patient with Dr Lori Antonio, neurology. Pt seen and examined. MRA, EEG, noncontrib. Possible TIA> rec risk modification, antiplt tx. NAHID Antonio MD
[2017-02-05 12:13] VITALS: BP_SYST 149; BP_SYST 151; BP_DIAS 100; BP_DIAS 102; PULSE 76; TEMP 36.8; O2SAT 92
[2017-02-05] MEDS ORDERED: LISINOPRIL 20 MG TAB PO ONE (12:53)
[2017-02-05 12:58] VITALS: BP 146/86
--- NOTE | 2017-02-05 13:13 | Progress Note ---
Medicine Progress Note Date & Time of Visit: February 05, 2017 at 12:54. Subjective Pt was seen and examined Sitting in bed comfortable with no distress Pt said that she feels fine she denies any vision problems Denies any chest pain, palpitation and sob Objective Last 8 Hrs Date Time Temp Pulse Resp B/P Pulse Ox O2 Delivery O2 Flow Rate FiO2 02/05/17 12:13 36.8 76 19 149/102 92 Room Air 151/100 02/05/17 12:03 Room Air 02/05/17 08:04 Room Air 02/05/17 07:58 36.9 68 18 146/94 96 Room Air Physical Exam: General- No acute distress Head- atraumatic Eyes- PERRL, EOMI ENT- oropharynx clear Neck- supple, no JVD Lungs- clear to auscultation Heart- regular rhythm Abdomen- normal bowel sounds, soft, nontender Extremities- no calf tenderness Neuro- alert, oriented x 3; PERRL, EOMI; no facial palsy Skin- warm & dry Laboratory Results: Last 24 Hours Test 02/04/17 16:20 02/04/17 20:27 02/05/17 05:42 02/05/17 07:24 Bedside Glucose 98 mg/dl 101 mg/dl 122 mg/dl Sodium Level 144 mmol/L Potassium Level 3.8 mmol/L Chloride Level 108 mmol/L Carbon Dioxide Level 32 mmol/L Anion Gap 4.0 mmol/L Blood Urea Nitrogen 19 mg/dl Creatinine 1.00 mg/dl Est Creatinine Clear Calc Drug Dose 75.4 ml/min Estimated GFR () 70.4 Estimated GFR (Non- 60.8 BUN/Creatinine Ratio 19.2 Random Glucose 109 mg/dl Calcium Level 8.7 mg/dl Magnesium Level 2.4 mg/dl Test 02/05/17 11:36 Bedside Glucose 107 mg/dl Assessment & Plan Stroke Like Symptoms Admitted for confusion, slurred speech, headache, transient blurred vision and dropping things Possible related to TIA MRI with and without contrast head - No acute intracranial findings.No evidence of acute or subacute infarction. No evidence of intracranial mass on this noncontrast study. MRA brain -Motion artifact. No definite stenosis, occlusion, or aneurysm within the [place]. CT of the Head-negative On plavix and aspirin Neurology on board recommended to continue Plavix for at least 3 months Schedule for ophthalmology appt as outpatient for evaluation of blurred vision Follow up with neurology in 3-4 weeks Continue PT/OT Hypertension BP elevated Resume home BP meds Hyperlipidemia Continue statin DM2 Recent Hba1c 6.8 (02/03/17) controlled Continue oral med COPD No acute symptoms Stable DVT prophylaxis on Lovenox SQ CODE STATUS FULL CODE DISPOSITION Likely discharge today Consultants: Neuro Current Inpatient Medications: Current Inpatient Medications Medications (Trade) Dose Ordered Sig/Cherelle Route Start Time Stop Time Status Last Admin Dose Admin Clopidogrel Bisulfate (plAVix TAB) 75 mg QAM PO 02/05/17 09:00 03/07/17 08:59 02/05/17 07:46 75 MG Miscellaneous (Iv Fluids Completed) 1 ea PRN PRN N/A 02/04/17 00:45 02/04/18 00:44 Enoxaparin Sodium (Lovenox Inj) 40 mg Q24H SC 02/04/17 09:00 03/06/17 08:59 02/05/17 07:46 40 MG Acetaminophen (Tylenol Tab) 650 mg Q4H PRN PO 02/04/17 01:00 03/06/17 00:59 02/05/17 06:33 650 MG Nitroglycerin (Nitrostat Tab) 0.4 mg UD PRN SL 02/04/17 01:00 03/06/17 00:59 Insulin Aspart (novoLOG ASPART) SLIDING SCALE If C... ACHS SC 02/04/17 06:30 03/06/17 06:59 Glucose (Glucose 40% Gel) 15-30 GRAMS 15 GRAMS... UD PRN PO 02/04/17 01:00 03/06/17 00:59 Glucose (Glucose Chew Tab) 4-8 Tablets 4 Tabl... UD PRN PO 02/04/17 01:00 03/06/17 00:59 Dextrose (Dextrose 50% 50ML Syringe) 25-50ML OF 50% DW IV FOR... UD PRN IV 02/04/17 01:00 03/06/17 00:59 Glucagon (Glucagon Inj) 1 mg UD PRN SQ 02/04/17 01:00 03/06/17 00:59 Miscellaneous Information (Pharmacist Discharge Med Rec Consult) 1 ea UD PRN N/A 02/04/17 01:00 03/06/17 00:59 Lorazepam (Ativan Inj) 0.5 mg Q4H PRN IV 02/04/17 01:00 03/06/17 00:59 02/04/17 21:04 0.5 MG Tramadol HCl (Ultram Tab) 25 mg Q6H PRN PO 02/04/17 01:00 03/06/17 00:59 Ondansetron HCl (Zofran Inj) 4 mg Q6H PRN IV 02/04/17 01:00 03/06/17 00:59 Morphine Sulfate (MoRPHine SULFATE INJ) 4 mg Q3H PRN IV 02/04/17 01:00 02/18/17 00:59 Fluticasone Propionate (Flonase Nasal [place]) 2 sprays DAILY BRANDON 02/04/17 09:00 03/06/17 08:59 02/05/17 07:47 2 SPRAYS Oxybutynin Chloride (Ditropan-Xl Tab) 10 mg DAILY PO 02/04/17 09:00 03/06/17 08:59 02/05/17 07:46 10 MG Lovastatin (Mevacor Tab) 40 mg DAILY PO 02/04/17 09:00 03/06/17 08:59 02/05/17 07:46 40 MG Pantoprazole Sodium (Protonix Tab) 40 mg DAILY PO 02/04/17 09:00 03/06/17 08:59 02/05/17 07:47 40 MG Aspirin 81 mg 81 mg QAM PO 02/05/17 09:00 03/07/17 08:59 02/05/17 07:46 81 MG Lorazepam/Syringe (Ativan Inj/ Syringe) 1 ml @ 1 mls/min Q4H PRN IV 02/04/17 21:00 03/06/17 20:59
--- NOTE | 2017-02-05 13:38 | EEG Procedure Note ---
EEG Procedure Note Date of Service February 05, 2017. Start / End Times Start Time: 5:04 AM End Time: 5:25 AM Referring Physician LYNN You History This is a 61-year-old female with TIA symptoms at this time. EEG for further evaluation of possible seizure etiology. Home Medication List Scheduled Aspirin (Aspirin Ec), 81 MG PO DAILY Clonidine Hcl (Catapres), 0.2 MG PO HS Fluticasone Furoate-Vilanterol (Breo Ellipta), 1 PUFFS INH DAILY Fluticasone Propionate (Nasal) (Flonase Allergy Relief), 2 SPRAYS BRANDON DAILY Furosemide (Lasix), 20 MG PO Q2D Lisinopril (Zestril), 20 MG PO DAILY Lovastatin (Mevacor), 40 MG PO DAILY Metformin Hcl (Glucophage), 1,000 MG PO QAM Omeprazole (Prilosec), 20 MG PO DAILY Oxybutynin Chloride Er (Ditropan Xl), 10 MG PO DAILY Scheduled PRN Albuterol Hfa (Ventolin Hfa), 2 PUFFS INH Q6H PRN for SOB/Wheezing Ondasetron Odt (Zofran Odt), 4 MG SL Q8 PRN for Nausea or Vomiting Inpatient Medication List Current Inpatient Medications Medications (Trade) Dose Ordered Sig/Cherelle Route Start Time Stop Time Status Last Admin Dose Admin Clopidogrel Bisulfate (plAVix TAB) 75 mg QAM PO 02/05/17 09:00 03/07/17 08:59 02/05/17 07:46 75 MG Miscellaneous (Iv Fluids Completed) 1 ea PRN PRN N/A 02/04/17 00:45 02/04/18 00:44 Enoxaparin Sodium (Lovenox Inj) 40 mg Q24H SC 02/04/17 09:00 03/06/17 08:59 02/05/17 07:46 40 MG Acetaminophen (Tylenol Tab) 650 mg Q4H PRN PO 02/04/17 01:00 03/06/17 00:59 02/05/17 06:33 650 MG Nitroglycerin (Nitrostat Tab) 0.4 mg UD PRN SL 02/04/17 01:00 03/06/17 00:59 Insulin Aspart (novoLOG ASPART) SLIDING SCALE If C... ACHS SC 02/04/17 06:30 03/06/17 06:59 Glucose (Glucose 40% Gel) 15-30 GRAMS 15 GRAMS... UD PRN PO 02/04/17 01:00 03/06/17 00:59 Glucose (Glucose Chew Tab) 4-8 Tablets 4 Tabl... UD PRN PO 02/04/17 01:00 03/06/17 00:59 Dextrose (Dextrose 50% 50ML Syringe) 25-50ML OF 50% DW IV FOR... UD PRN IV 02/04/17 01:00 03/06/17 00:59 Glucagon (Glucagon Inj) 1 mg UD PRN SQ 02/04/17 01:00 03/06/17 00:59 Miscellaneous Information (Pharmacist Discharge Med Rec Consult) 1 ea UD PRN N/A 02/04/17 01:00 03/06/17 00:59 Lorazepam (Ativan Inj) 0.5 mg Q4H PRN IV 02/04/17 01:00 03/06/17 00:59 02/04/17 21:04 0.5 MG Tramadol HCl (Ultram Tab) 25 mg Q6H PRN PO 02/04/17 01:00 03/06/17 00:59 Ondansetron HCl (Zofran Inj) 4 mg Q6H PRN IV 02/04/17 01:00 03/06/17 00:59 Morphine Sulfate (MoRPHine SULFATE INJ) 4 mg Q3H PRN IV 02/04/17 01:00 02/18/17 00:59 Fluticasone Propionate (Flonase Nasal [place]) 2 sprays DAILY BRANDON 02/04/17 09:00 03/06/17 08:59 02/05/17 07:47 2 SPRAYS Oxybutynin Chloride (Ditropan-Xl Tab) 10 mg DAILY PO 02/04/17 09:00 03/06/17 08:59 02/05/17 07:46 10 MG Lovastatin (Mevacor Tab) 40 mg DAILY PO 02/04/17 09:00 03/06/17 08:59 02/05/17 07:46 40 MG Pantoprazole Sodium (Protonix Tab) 40 mg DAILY PO 02/04/17 09:00 03/06/17 08:59 02/05/17 07:47 40 MG Aspirin 81 mg 81 mg QAM PO 02/05/17 09:00 03/07/17 08:59 02/05/17 07:46 81 MG Lorazepam/Syringe (Ativan Inj/ Syringe) 1 ml @ 1 mls/min Q4H PRN IV 02/04/17 21:00 03/06/17 20:59 Clonidine HCl (Catapres Tab) 0.2 mg HS PO 02/05/17 21:00 03/07/17 20:59 Lisinopril (Zestril Tab) 20 mg DAILY PO 02/06/17 09:00 03/08/17 08:59 Description This is a 21 electrode EEG with a single channel dedicated to limited EKG. The electrodes were placed in accordance with the International 10-20 system. At the start of the recording the patient was in an awake state. Background was well organized and composed of symmetric mixed alpha and beta frequencies. There was a symmetric well-formed moderate amplitude 8-9 Hz posterior dominant rhythm that was reactive to eye opening and closure. Hyperventilation was not done. Intermittent photic stimulation at various frequencies produced no abnormalities. Drowsiness was indicated by loss of muscle artifact and slowing of the background rhythm. There was no sleep transients. There was occasional brief right temporal theta slowing that was rarely sharply contoured maximum around T6 in the awake and drowsy state. Interpretation This is an abnormal routine EEG secondary to intermittent brief right temporal slowing that was rarely sharply contoured. There was no electrographic seizures or clearly epileptiform discharges. Clinical Correlation This EEG indicates a functional or structural cerebral dysfunction in the right temporal area.
[2017-02-05] MEDS ORDERED: PLV75 PO (15:35)
--- NOTE | 2017-02-05 15:58 | Discharge Instructions ---
Discharge Instructions Date of Service February 05, 2017. Admission Reason for Admission: TIA Discharge Discharge Diagnosis / Problem: Stroke Like Symptoms, Hypertension, Hyperlipidemia, Diabetes Discharge Goals Goal(s): Decrease discomfort, Improve function, Improve disease control Activity Recommendations Activity Limitations: resume your previous activity . Instructions / Follow-Up Instructions / Follow-Up Follow up appointment with primary care Dr. Huitron on 02/10 @ 2pm Follow up appointment with Neurology Lori Morrow PA-C on 03/18 @ 9:[address], [place] [address] Continue Plavix 75 mg daily and Aspirin 81 mg daily Please notify your doctor if you develop any abnormal bleeding or any blood in your stool or urine Current Hospital Diet Patient's current hospital diet: Diabetes Type 2 Diet, AHA Diet (Heart Healthy) Discharge Diet Recommended Diet: Diabetes Type 2 Diet Pending Studies Studies pending at discharge: no Laboratory Results Hemoglobin A1c Test 02/03/17 22:25 Range/Units Estimated Average Glucose 148 mg/dl Hemoglobin A1c 6.8 H 4.5-5.6 % Medical Emergencies . Who to Call and When: Medical Emergencies: If at any time you feel your situation is an emergency, please call 911 immediately. . Non-Emergent Contact Non-Emergency issues call your: Primary Care Provider Call Non-Emergent contact if: you have any medication questions . . "Provider Documentation" section prepared by Eri Rodriguez. . VTE Core Measure Inpt VTE Proph given/why not?: Enoxaparin (Lovenox)SQ
[2017-02-05 16:11] VITALS: BP 158/105; PULSE 72; TEMP 36.3; O2SAT 94
[2017-02-05 16:33] VITALS: BP 158/105; PULSE 72; TEMP 36.3; O2SAT 94
[2017-02-05] MEDS ORDERED: CLONIDINE HCL 0.1 MG TAB PO SCH (21:00)
[2017-02-06] MEDS ORDERED: LISINOPRIL 20 MG TAB PO SCH (09:00)
--- NOTE | 2017-02-07 23:40 | Discharge Summary ---
Discharge Summary Date of Service February 07, 2017. Discharge Summary Admission Date: February 04, 2017 at 00:27 Discharge Date: February 05, 2017 Discharge Disposition: Home Principal Diagnosis: Stroke Like Symptoms Secondary Diagnoses/Problems: Hypertension Hyperlipidemia Diabetes COPD Procedures: NECK MRA HISTORY: Mental status change confusion dizziness TECHNIQUE: [id number] and gadolinium-enhanced MRA of the neck was performed both before and after the intravenous administration of contrast. All measurements were calculated based on NASCET criteria. COMPARISON STUDY: None FINDINGS: The aortic arch and proximal great vessels are widely patent. There is no significant stenosis, occlusion, or dissection identified within the bilateral common carotid, internal carotid, or vertebral arteries. 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 Otherwise negative study Electronically signed by: Jordan Heller M.D. 02/04/2017 9:46 PM ULTRASOUND OF THE CAROTID ARTERIES CLINICAL HISTORY: Change in mental status. Vision changes. COMPARISON STUDY: No priors. TECHNIQUE: Real-time, grayscale, and color Doppler sonography of the carotid arteries is performed. Images are reviewed in the transverse and longitudinal planes. FINDINGS: Blood pressures were not assessed due to limb restrictions. The carotid arteries are patent bilaterally and demonstrate antegrade flow. There is no significant atherosclerotic plaque seen. Normal doppler arterial waveforms are seen throughout. Velocity measurements are listed below. Common carotid peak systolic velocity (cm/sec): RIGHT: 57 LEFT: 75 ICA proximal peak systolic velocity (cm/sec): RIGHT: 37 LEFT: 66 ICA mid peak systolic velocity (cm/sec): RIGHT: 31 LEFT: 72 ICA distal peak systolic velocity (cm/sec): RIGHT: 82 LEFT: 72 ICA/CC peak systolic ratio: RIGHT: 1.4 LEFT: 1.0 Antegrade flow was shown in the vertebral arteries. The external carotid arteries are patent. IMPRESSION: 1. There is no sonographic evidence of hemodynamically significant stenosis in the right or left carotid arterial system. 2. Antegrade flow is shown in the vertebral arteries. Electronically signed by: Daljit Basilio M.D. 02/04/2017 4:03 PM Dictated Date/Time: 02/04/2017 3:59 PM MRI OF THE BRAIN WITHOUT CONTRAST CLINICAL HISTORY: Stroke, dizziness, blurry vision. COMPARISON STUDY: Head CT dated 02/03/2017 FINDINGS: Sagittal T1, axial diffusion, proton density and T2 weighted axial, coronal FLAIR, and axial T1-weighted images were acquired. No intra or extra-axial mass lesions are visualized Axial diffusion-weighted images reveal no evidence of acute or subacute infarction. There is no evidence of ventricular dilatation. Proton density T2-weighted and FLAIR images reveal scattered foci of increased T2 signal within the white matter, likely on a small vessel basis. There are no abnormal flow voids. IMPRESSION: 1. No acute intracranial findings 2. No evidence of acute or subacute infarction 3. No evidence of intracranial mass on this noncontrast study. Electronically signed by: David Robledo M.D. 02/04/2017 6:41 AM Dictated Date/Time: 02/04/2017 6:40 AM Brain MRA HISTORY: Stroke - Attention to [place] TECHNIQUE: 3-D [id number] MRA of the brain was performed without contrast. COMPARISON STUDY: None. FINDINGS: Motion artifact resulting in suboptimal evaluation. However, there is no definite stenosis, occlusion, or aneurysm identified within the bilateral ACAs, MCAs, or [place]. The intracranial internal carotid arteries appear patent. The basilar artery is patent. Hypoplastic distal left vertebral artery. However, the distal vertebral arteries are likely patent. IMPRESSION: Motion artifact. No definite stenosis, occlusion, or aneurysm within the [place]. Electronically signed by: Jesus Virk M.D. 02/04/2017 11:19 AM Dictated Date/Time: 02/04/2017 7:05 AM Patient Name: KENNETH RAUSCH Unit Number: [id number] Dictated: 02/03/172246 Transcribed: 02/03/172246 EV Printed Date/Time: [~ rep prt dt]/[~ rep prt tm] [~ rep ct labl] - [~ rep ct ivnm] [facility] [place] [address] Dictated: 02/03/172246 Transcribed: 02/03/172246 EV Printed Date/Time: [~ rep prt dt]/[~ rep prt tm] [~ rep ct labl] - [~ rep ct ivnm] CT SCAN OF THE BRAIN WITHOUT IV CONTRAST CLINICAL HISTORY: Visual changes. COMPARISON STUDY: No priors. TECHNIQUE: Unenhanced axial CT scan of the brain is performed from the vertex to the skull base. Automated dose control exposure was utilized. CT DOSE: 537.48 mGy.cm FINDINGS: Brain parenchyma: The brain parenchyma is normal in appearance. There is no hemorrhage, mass effect, or evidence of acute territorial ischemia by CT criteria. [place]-white matter is preserved. No extra-axial fluid collection is seen. Ventricles, sulci, cisterns: Normal in configuration. Intracranial vasculature: There is atherosclerotic calcification of the cavernous carotid arteries. Calvarium: Unremarkable. Sinuses and mastoids: The visualized paranasal sinuses are clear. The mastoid air cells are well pneumatized. Orbits: The bony orbits are grossly intact. IMPRESSION: There is no hemorrhage, mass effect, or evidence of acute territorial ischemia by CT criteria. Electronically signed by: Daljit Basilio M.D. 02/03/2017 10:49 PM Dictated Date/Time: 02/03/2017 10:47 PM Consultations: Neuro Medication Reconciliation New Medications: Clopidogrel Bisulfate (Clopidogrel) 75 Mg Tab 75 MG PO QAM for 30 Days, #30 TAB Continued Medications: Albuterol Hfa (Ventolin Hfa) 200 Puffs/83036 Mcg Aers 2 PUFFS INH Q6H PRN for SOB/Wheezing, #1 INHALER Aspirin (Aspirin Ec) 81 Mg Tab 81 MG PO DAILY Clonidine Hcl (Catapres) 0.2 Mg Tab 0.2 MG PO HS, TAB Fluticasone Furoate-Vilanterol (Breo Ellipta) 1 Inh Inh 1 PUFFS INH DAILY BREO 100/25 Fluticasone Propionate (Nasal) (Flonase Allergy Relief) 50 Mcg/Act Spr 2 SPRAYS BRANDON DAILY Furosemide (Lasix) 20 Mg Tab 20 MG PO Q2D, TAB Lisinopril (Zestril) 20 Mg Tab 20 MG PO DAILY, TAB Lovastatin (Mevacor) 40 Mg Tab 40 MG PO DAILY, TAB Metformin Hcl (Glucophage) 500 Mg Tab 1000 MG PO QAM, TAB 2 TABLET DOSE Omeprazole (Prilosec) 20 Mg Capcr 20 MG PO DAILY, CAP Ondasetron Odt (Zofran Odt) 4 Mg Tab 4 MG SL Q8 PRN for Nausea or Vomiting, TAB Oxybutynin Chloride Er (Ditropan Xl) 10 Mg Tab 10 MG PO DAILY, TAB Admission Information HPI (per Admitting provider): CHIEF COMPLAINT: Transient blurred vision and dropping things. HISTORY OF PRESENT ILLNESS: Hx obtained from px and records. Medical history significant for hypertension, DM2 on oral meds, hyperlipidemia, COPD, past tobacco abuse. Over the last few days, patient noted intermittent blurred vision in both eyes, occasional dropping things. No chest pain, usual shortness of breath, usual dry cough symptoms. No headache. compliant w home ASA Initially went to [facility] Emergency Room. Patient subsequently brought by family to [facility] ER for evaluation due to wait time at [facility]. Vision currently at baseline as per px. Physical Exam (per Admitting): VITAL SIGNS: Blood pressure was noted to be 159/105, pulse rate 80, RR 20, temperature 36.8, sats 94 on room air. GENERAL: Noted to be anxious, tearful, obese. No respiratory distress. SKIN: Normal color. HEENT: [place] palpebral conjunctivae. Dry mucosa. NECK: Short neck. LUNGS: Decreased breath sounds. HEART: Regular rate and rhythm. ABDOMEN: Soft. EXTREMITIES: min LE edema, no tenderness. NE : No gross focality. Hospital Course Stroke Like Symptoms Admitted for confusion, slurred speech, headache, transient blurred vision and dropping things Possible related to TIA MRI with and without contrast head - No acute intracranial findings.No evidence of acute or subacute infarction. No evidence of intracranial mass on this noncontrast study. MRA brain -Motion artifact. No definite stenosis, occlusion, or aneurysm within the [place] of [place]. CT of the Head-negative On plavix and aspirin Neurology on board recommended to continue Plavix for at least 3 months Schedule for ophthalmology appt as outpatient for evaluation of blurred vision Follow up with neurology in 3-4 weeks Continue PT/OT Hypertension BP elevated Resume home BP meds Hyperlipidemia Continue statin DM2 Recent Hba1c 6.8 (02/03/17) controlled Continue oral med COPD No acute symptoms Stable DVT prophylaxis on Lovenox SQ CODE STATUS FULL CODE DISPOSITION Likely discharge today Total time spent on discharge = 35 minutes This includes examination of the patient, discharge planning, medication reconciliation, and communication with other providers. Discharge Instructions Discharge Instructions Date of Service February 05, 2017. Admission Reason for Admission: TIA Discharge Discharge Diagnosis / Problem: Stroke Like Symptoms, Hypertension, Hyperlipidemia, Diabetes Discharge Goals Goal(s): Decrease discomfort, Improve function, Improve disease control Activity Recommendations Activity Limitations: resume your previous activity . Instructions / Follow-Up Instructions / Follow-Up Follow up appointment with primary care Dr. Huitron on 02/10 @ 2pm Follow up appointment with Neurology Lori Morrow PA-C on 03/18 @ 9:[address], [place] [address] Continue Plavix 75 mg daily and Aspirin 81 mg daily Please notify your doctor if you develop any abnormal bleeding or any blood in your stool or urine Current Hospital Diet Patient's current hospital diet: Diabetes Type 2 Diet, AHA Diet (Heart Healthy) Discharge Diet Recommended Diet: Diabetes Type 2 Diet Pending Studies Studies pending at discharge: no Laboratory Results Hemoglobin A1c Test 02/03/17 22:25 Range/Units Estimated Average Glucose 148 mg/dl Hemoglobin A1c 6.8 H 4.5-5.6 % Medical Emergencies . Who to Call and When: Medical Emergencies: If at any time you feel your situation is an emergency, please call 911 immediately. . Non-Emergent Contact Non-Emergency issues call your: Primary Care Provider Call Non-Emergent contact if: you have any medication questions . . "Provider Documentation" section prepared by Eri Rodriguez. . VTE Core Measure Inpt VTE Proph given/why not?: Enoxaparin (Lovenox)SQ Additional Copies To Ez Thorpe PA-C
== END 2017-02-05 16:48 | disposition home or self-care (01) ==
LOC: ENRESERVDT → ENRESERVTM → C.EDB 21:40 → C.MED 02-04 00:27
PROVIDERS: ADMIT Internal Medicine; ATTEND Internal Medicine
DX: G45.9 Transient cerebral ischemic attack, unspecified (principal); I10 Essential (primary) hypertension; E78.5 Hyperlipidemia, unspecified; E11.9 Type 2 diabetes mellitus without complications; J44.9 Chronic obstructive pulmonary disease, unspecified; Z87.891 Personal history of nicotine dependence; Z79.82 Long term (current) use of aspirin; Z79.899 Other long term (current) drug therapy; Z79.84 Long term (current) use of oral hypoglycemic drugs; Z82.49 Family history of ischemic heart disease and other diseases of the circulatory system